=== PATIENT | female | born 1995 | race American Indian/Alaskan Native ===

== ENCOUNTER 2017-12-11 05:37 | Emergency (ER) | payer SELFPAY ==
[2017-12-11 06:18] VITALS: BP 140/70
[2017-12-11 07:17] LABS: Bacteria,Urine 4+ /HPF (Negative); Bilirubin,Urine NEG (Negative); Blood,Urine SM (Negative); Color,Urine Yellow (Yellow); Hyaline Casts,Urine 2 /LPF; Mucus,Urine 3+ /HPF; Nitrite,Urine POS (Negative); Protein,Urine <15 mg/dL mg/dL (Negative)
[2017-12-11 07:25] LABS: HCG Qualitative,Urine Negative (Negative)
--- NOTE | 2017-12-11 09:55 | Emergency Department Report ---
ED Female HPI - General Chief complaint: Urogenital-Female Stated complaint: ABD PAIN Time Seen by Provider: 12/11/17 08:26 Source: patient Mode of arrival: Ambulatory Limitations: No Limitations - History of Present Illness Initial comments: This is a 22-year-old female nontoxic, well nourished in appearance, no acute signs of distress presents to the ED with c/o of vaginal discharge, dysuria, polyuria, and urinary frequency x1 week. Patient stated that she had a sexual activity last week and then developed these symptoms. Patient describes vaginal discharge as yellow colored with foul odor. Patient denies any back pain, hematuria, fever, chills, headache, stiff neck, nausea, vomiting, chest pain, shortness of breathe, or abdominal/pelvic pain. Patient stated she wants to be treated empirically for STD. Patient denies any drug allergies or PMH. MD Complaint: vaginal discharge, dysuria, possible STD -: week(s) (1) Radiation: non-radiating Severity: mild Severity scale (0 -10): 8 Quality: burning Consistency: constant Improves with: none Worsens with: urination Are you Now?: Yes Associated Symptoms: vaginal discharge, dysuria. denies: vaginal bleeding, abdominal pain, nausea/vomiting, fever/chills, headaches, loss of appetite, hematuria, rash, seizure, shortness of breath, syncope, weakness - Related Data Previous Rx's Medication Instructions Recorded Last Taken Type Nitrofurantoin Rains/M-Cryst 100 mg PO Q12HR #14 capsule 12/11/17 Unknown Rx [Macrobid CAP] Allergies Allergy/AdvReac Type Severity Reaction Status Date / Time No Known Allergies Allergy Unverified 12/11/17 06:18 ED Review of Systems ROS: Stated complaint: ABD PAIN Other details as noted in HPI Constitutional: denies: chills, fever Eyes: denies: eye pain, eye discharge, vision change ENT: denies: ear pain, throat pain Respiratory: denies: cough, shortness of breath, wheezing Cardiovascular: denies: chest pain, palpitations Endocrine: no symptoms reported Gastrointestinal: denies: abdominal pain, nausea, diarrhea Genitourinary: urgency, dysuria, frequency, discharge Musculoskeletal: denies: back pain, joint swelling, arthralgia Skin: denies: rash, lesions Neurological: denies: headache, weakness, paresthesias Psychiatric: denies: anxiety, depression Hematological/Lymphatic: denies: easy bleeding, easy bruising ED Past Medical Hx - Past Medical History Previous Medical History?: No - Surgical History Past Surgical History?: No - Social History Smoking Status: Never Smoker Substance Use Type: None - Medications Home Medications: Home Medications Medication Instructions Recorded Confirmed Last Taken Type Nitrofurantoin Rains/M-Cryst 100 mg PO Q12HR #14 capsule 12/11/17 Unknown Rx [Macrobid CAP] ED Physical Exam - General Limitations: No Limitations General appearance: alert, in no apparent distress - Head Head exam: Present: atraumatic, normocephalic - Eye Eye exam: Present: normal appearance, PERRL, EOMI Pupils: Present: normal accommodation - ENT ENT exam: Present: normal exam, normal orophraynx, mucous membranes moist, TM's normal bilaterally, normal external ear exam - Neck Neck exam: Present: normal inspection, full ROM - Respiratory Respiratory exam: Present: normal lung sounds bilaterally. Absent: respiratory distress, wheezes, rales, rhonchi, stridor, chest wall tenderness, accessory muscle use, decreased breath sounds, prolonged expiratory - Cardiovascular Cardiovascular Exam: Present: regular rate, normal rhythm, normal heart sounds. Absent: bradycardia, tachycardia, irregular rhythm, systolic murmur, diastolic murmur, rubs, gallop - GI/Abdominal GI/Abdominal exam: Present: soft, normal bowel sounds. Absent: distended, tenderness, guarding, rebound, rigid, diminished bowel sounds - Rectal Rectal exam: Present: deferred - External exam: Present: normal external exam, other ([employer] instructor present during exam). Absent: erythema, swelling, lesions, lacerations, ecchymosis, bleeding Speculum exam: Present: normal speculum exam, cervical discharge (yellow with foul odor), other ([employer] instructor present during exam). Absent: erythema, vaginal discharge, vaginal bleeding, foreign body, tissue, laceration Bi-manual exam: Present: normal bi-manual exam, other ([employer] instructor present during exam). Absent: cervical motion tendernes, adnexal tenderness, adnexal mass, uterine enlargement, uterine tenderness - Extremities Exam Extremities exam: Present: normal inspection, full ROM, normal capillary refill. Absent: tenderness, pedal edema, joint swelling, calf tenderness - Back Exam Back exam: Present: normal inspection, full ROM. Absent: tenderness, CVA tenderness (R), CVA tenderness (L), muscle spasm, paraspinal tenderness, vertebral tenderness, rash noted - Neurological Exam Neurological exam: Present: alert, oriented X3, CN II-XII intact, normal gait, reflexes normal - Psychiatric Psychiatric exam: Present: normal affect, normal mood - Skin Skin exam: Present: warm, dry, intact, normal color. Absent: rash ED Course Vital Signs 12/11/17 06:15 Temperature 97.9 F Pulse Rate 82 Respiratory 17 Rate Blood Pressure 140/70 O2 Sat by Pulse 99 Oximetry - Reevaluation(s) Reevaluation #1: 12/11/17 09:58 Patient is speaking in full sentences with no signs of distress noted. ED Medical Decision Making - Medical Decision Making This 22-year-old female that presents with possible STD exposure and UTI. Patient is stable and was examined by me. UA indicates UTI. Wet prep obtained. Gonorrhea and chlamydia pending. Patient stated she wants to be treated empirically for STD. Patient received Rocephin and azithromycin. Patient was instructed to return in 3 days to obtain results of G/C. Patient was instructed to Follow-up with a primary care doctor in 3-5 days or if symptoms worsen and continue return to emergency room as soon as possible. At time of discharge, the patient does not seem toxic or ill in appearance. No acute signs of distress noted. Patient agrees to discharge treatment plan of care. No further questions noted by the patient. Critical care attestation.: If time is entered above; I have spent that time in minutes in the direct care of this critically ill patient, excluding procedure time. ED Disposition Clinical Impression: Possible exposure to STD UTI (urinary tract infection) Qualifiers: Urinary tract infection type: site unspecified Hematuria presence: with hematuria Qualified Code(s): N39.0 - Urinary tract infection, site not specified ; R31.9 - Hematuria, unspecified; R31.9 - Hematuria, unspecified Disposition: -01 TO HOME OR SELFCARE Is pt being admited?: No Does the pt Need Aspirin: No Condition: Stable Instructions: Urinary Tract Infection in Women (ED), Safe Sex (ED), Nitrofurantoin Combination (By mouth) Additional Instructions: Follow-up with a primary care doctor in 3-5 days or if symptoms worsen and continue return to emergency room as soon as possible. Return in 3-5 days to obtain results of gonorrhea and chlamydia Prescriptions: Nitrofurantoin Rains/M-Cryst [Macrobid CAP] 100 mg PO Q12HR #14 capsule Referrals: PRIMARY CARE, [Primary Care Provider] - 3-5 Days VIRGINIA COLLINS MD [Staff Physician] - 3-5 Days [facility] [place] [Outside] - 3-5 Days [facility] [Outside] - 3-5 Days Forms: Work/School Release Form(ED)
[2017-12-11] MEDS ORDERED: ZITHROMAX PO ONE (10:01)
[2017-12-11] MEDS ORDERED: XYLOCAINE 1% MPF 5 mL INFILTRATI ONE (10:01)
[2017-12-11] MEDS ORDERED: ROCEPHIN IM ONE (10:01)
== END 2017-12-11 10:55 | disposition home or self-care (01) ==
LOC: ED 05:37
DX: N39.0 Urinary tract infection, site not specified (principal)
CPT/HCPCS: 81001; 81025; 87210; 87591; 96372; 99284; J0696